=== PATIENT | male | born 1985 | race Caucasian/White ===

== ENCOUNTER 2020-06-10 16:29 | Emergency (ER) | payer BC ==
--- NOTE | 2020-06-10 18:00 | CR ---
Left ankle: 4 views of the left ankle were obtained. Comparison: No previous ankle study. Soft tissue swelling is identified laterally. Ankle mortise is symmetric. No acute fracture, dislocation or other bony abnormality is appreciated. Impression: 1. Soft tissue swelling. 2. No acute bony abnormality is appreciated. Diagnostic code #2 This report was dictated in MDT
--- NOTE | 2020-06-10 18:16 | EDM.PDOC ---
ED [facility] GENERAL MEDICAL PROBLEM - General Chief Complaint: Lower Extremity Injury/Pain Stated Complaint: LT ANKLE INJURY Time Seen by Provider: 06/10/20 17:24 Source of Information: Reports: Patient History Limitations: Reports: No Limitations - History of Present Illness INITIAL COMMENTS - FREE TEXT/NARRATIVE: Patient is a 34-year-old male who presents to the emergency department with complaints of left lateral ankle pain and swelling. Patient states he jumped off of a car trailer and felt a crack in his ankle. He has had pain to the lateral aspect of the ankle since that time. He has not attempted to bear weight on the extremity since the time of the injury. He denies a previous history of injury to this extremity. Left Ankle Pain Score (Numeric/FACES): 8 - Related Data Allergies Allergy/AdvReac Type Severity Reaction Status Date / Time No Known Allergies Allergy Verified 06/10/20 17:22 Home Meds: Home Meds . [No Known Home Meds] 06/10/20 [History] Past Medical History - Past Health History Medical/Surgical History: Denies Medical/Surgical History - Infectious Disease History Infectious Disease History: Reports: None Social & Family History - Tobacco Use Smoking Status *Q: Never Smoker - Caffeine Use Caffeine Use: Reports: None - Recreational Drug Use Recreational Drug Use: No Review of Systems - Review of Systems Review Of Systems: Comprehensive ROS is negative, except as noted in HPI. ED EXAM, GENERAL - Physical Exam Exam: See Below Exam Limited By: No Limitations General Appearance: Alert, WD/WN, No Apparent Distress Respiratory/Chest: No Respiratory Distress, Lungs Clear, Normal Breath Sounds, No Accessory Muscle Use, Chest Non-Tender Cardiovascular: Normal Peripheral Pulses, Regular Rate, Rhythm, No Edema, No Gallop, No JVD, No Murmur, No Rub Extremities: Other (Tenderness and edema to the lateral aspect of the left ankle. No obvious ecchymosis or deformity.) Neurological: Alert, Oriented, CN II-XII Intact, Normal Cognition, Normal Gait, Normal Reflexes, No Motor/Sensory Deficits Course - Vital Signs Last Recorded V/S: Last Vital Signs Temp 97.6 F 06/10/20 17:20 Pulse 65 06/10/20 17:20 Resp 16 06/10/20 17:20 BP 126/83 06/10/20 17:20 Pulse Ox 100 06/10/20 17:20 - Re-Assessments/Exams Free Text/Narrative Re-Assessment/Exam: 06/10/20 18:12 X-ray of the left ankle was negative for any acute fractures. Discussed with patient that he likely sprained the lateral ligaments of his ankle. We will provide him with an air splint and crutches. Discharge instructions as documented. Departure - Departure Time of Disposition: 18:14 Disposition: Home, Self-Care 01 Condition: Good Clinical Impression: Left ankle sprain Qualifiers: Encounter type: initial encounter Involved ligament of ankle: unspecified ligament Qualified Code(s): S93.402A - Sprain of unspecified ligament of left ankle, initial encounter - Discharge Information *PRESCRIPTION DRUG MONITORING PROGRAM REVIEWED*: No *COPY OF PRESCRIPTION DRUG MONITORING REPORT IN PATIENT MIGEL: No Instructions: Ankle Sprain, [id number] Referrals: Josie Mobley NP [Primary Care Provider] - Last Sahu MD [Physician] - Additional Instructions: You were seen in the emergency department today for pain and swelling to the lateral aspect of your left ankle after jumping off a car trailer. X-rays were completed and did not show any fractures of the ankle. It is likely you are suffering from a sprain of the lateral ligaments of your left ankle. You have been provided with an air splint. Wear this as needed for comfort. I would recommend that you remain nonweightbearing for at least 2 days. After that time you may start gradually walking on the leg with the splint on. After a few days from that, you may start walking on the ankle without the splint. Recommend that you ice and elevate the extremity when at rest. You may use [id number] Tylenol and ibuprofen as needed for discomfort. If you are still experiencing significant discomfort after 2 weeks, recommend that you call and schedule an appointment with orthopedist, Dr. Sahu. The number to schedule with him as listed below. Return to the ER as needed. Sepsis Event Note (ED) - Evaluation Sepsis Screening Result: No Definite Risk - Focused Exam Vital Signs: Vital Signs Temp Pulse Resp BP Pulse Ox 06/10/20 17:20 97.6 F 65 16 126/83 100
== END 2020-06-10 18:30 | disposition home or self-care (01) ==
LOC: JD.ED 16:29
DX: S93.402A Sprain of unspecified ligament of left ankle, initial encounter (principal); W17.89XA Other fall from one level to another, initial encounter
CPT/HCPCS: 73610-26-LT; 73610-LT; 99282; 99283-25

== ENCOUNTER 2023-04-27 21:28 | Emergency (ER) | payer BC ==
[2023-04-27] MEDS ORDERED: Fluorescein 1 MG Ophth Strip EYERT ONE (22:04)
[2023-04-27] MEDS ORDERED: Ciprofloxacin 0.3% Ophth Soln 5 ML Bottle EYERT SCH (22:45)
== END 2023-04-27 23:05 | disposition home or self-care (01) ==
LOC: JD.ED 21:28
DX: S05.01XA Injury of conjunctiva and corneal abrasion without foreign body, right eye, initial encounter (principal); Z79.899 Other long term (current) drug therapy; X58.XXXA Exposure to other specified factors, initial encounter
CPT/HCPCS: 99283; A9270